=== PATIENT | male | born 1975 | race Caucasian/White ===

== ENCOUNTER 2016-10-16 09:44 | Emergency (ER) | payer OTHER ==
[2016-10-16 09:56] VITALS: BP 123/79
== END 2016-10-16 10:45 | disposition home or self-care (01) ==
LOC: ED 09:44
DX: K57.92 Diverticulitis of intestine, part unspecified, without perforation or abscess without bleeding (principal)

== ENCOUNTER 2016-10-18 07:27 | Emergency (ER) | payer OTHER ==
[2016-10-18 08:33] LABS: CALCIUM 8.5 mg/dL (8.5-10.1); CARBON DIOXIDE 27.3 mmol/L (21-32); CHLORIDE SERUM 102 mmol/L (98-107); CREATININE SERUM 0.9 mg/dL (0.7-1.3); GFR1 > 60 mL/min; GLUCOSE SERUM 134 mg/dL (74-106); POTASSIUM SERUM 4.3 mmol/L (3.5-5.1); SODIUM SERUM 137 mmol/L (136-145)
[2016-10-18 08:39] LABS: ALKALINE PHOSPHATASE 99 U/L (46-116); ALT/SGPT 42 U/L (16-63); AST/SGOT 17 U/L (15-37); BILIRUBIN TOTAL 0.5 mg/dL (0.20-1.00); LIPASE 135 IU/L (73-393); TOTAL PROTEIN, SERUM 6.9 g/dL (6.4-8.2)
[2016-10-18 08:49] LABS: BASOPHIL % 0.4 % (0-2); PLATELET COUNT 291 x10^3mcL (130-400); RED CELL DISTRIBUTION WIDTH 12.3 % (11.5-14.5)
[2016-10-18 11:53] VITALS: BP 121/86
== END 2016-10-18 11:53 | disposition home or self-care (01) ==
LOC: ED 07:27
PROVIDERS: Emergency Medicine
DX: K57.92 Diverticulitis of intestine, part unspecified, without perforation or abscess without bleeding (principal)
CPT/HCPCS: J1885; J7030; Q9967

== ENCOUNTER 2017-03-30 19:37 | Emergency (ER) | payer OTHER ==
[2017-03-30 22:24] LABS: PLATELET COUNT 326 x10^3mcL (130-400); RED CELL DISTRIBUTION WIDTH 12.9 % (11.5-14.5)
[2017-03-30 22:39] LABS: CALCIUM 7.9 mg/dL (8.5-10.1); CARBON DIOXIDE 21.8 mmol/L (21-32); CHLORIDE SERUM 106 mmol/L (98-107); CREATININE SERUM 0.7 mg/dL (0.7-1.3); GFR1 > 60 mL/min; GLUCOSE SERUM 156 mg/dL (74-106); POTASSIUM SERUM 3.3 mmol/L (3.5-5.1); SODIUM SERUM 140 mmol/L (136-145)
[2017-03-30 22:45] LABS: BASOPHIL % 2.4 % (0-2)
[2017-03-30 22:54] LABS: FREE T4 0.97 ng/dL (0.76-1.46)
[2017-03-31 00:05] VITALS: BP 151/92
== END 2017-03-31 00:05 | disposition home or self-care (01) ==
LOC: ED 19:37
PROVIDERS: Emergency Medicine
DX: M54.5 Low back pain (principal); R00.0 Tachycardia, unspecified
CPT/HCPCS: 84439; J1885; J7030

== ENCOUNTER 2017-07-07 18:11 | Emergency (ER) | payer SELFPAY ==
[~2017-07-07] VITALS: Ht 175.3 cm; Wt 77.1 kg
[2017-07-07 18:22] VITALS: Ht 175.3 cm; Wt 77.1 kg
[2017-07-07 20:00] VITALS: BP 139/99
== END 2017-07-07 20:01 | disposition home or self-care (01) ==
LOC: ED 18:11
DX: F10.129 Alcohol abuse with intoxication, unspecified (principal)

== ENCOUNTER 2017-09-15 12:50 | Inpatient (IN) | payer OTHER ==
[~2017-09-15] VITALS: Ht 170.2 cm; Wt 78.0 kg
[2017-09-15 14:11] LABS: microscopic required? NO
[2017-09-15 14:21] LABS: UA SPECIFIC GRAVITY 1.015 (1.005-1.035); urine erythrocyte NEGATIVE (NEGATIVE)
[2017-09-15 14:28] LABS: BASOPHIL % 0.6 % (0-2); PLATELET COUNT 225 x10^3mcL (130-400); RED CELL DISTRIBUTION WIDTH 13.2 % (11.5-14.5)
[2017-09-15 14:31] LABS: CALCIUM 8.2 mg/dL (8.5-10.1); CARBON DIOXIDE 18.6 mmol/L (21-32); CHLORIDE SERUM 96 mmol/L (98-107); CREATININE SERUM 0.8 mg/dL (0.7-1.3); GFR1 > 60 mL/min; GLUCOSE SERUM 399 mg/dL (74-106); POTASSIUM SERUM 3.6 mmol/L (3.5-5.1); SODIUM SERUM 134 mmol/L (136-145)
[2017-09-15 14:45] LABS: ALBUMIN 3.4 g/dL (3.4-5.0); ALKALINE PHOSPHATASE 135 U/L (46-116); ALT/SGPT 39 U/L (16-63); AST/SGOT 16 U/L (15-37); BILIRUBIN TOTAL 0.4 mg/dL (0.20-1.00); TOTAL PROTEIN, SERUM 6.5 g/dL (6.4-8.2)
[2017-09-15 16:38] LABS: AMPHETAMINE QUAL UR NONE DETECTED (NEG <=1000)
[2017-09-15 16:43] LABS: T3 TOTAL 0.73 ng/mL
[2017-09-15 16:45] LABS: CHOLESTEROL/HDL RATIO 5.8; MAGNESIUM 1.9 mg/dL (1.8-2.4); PHOSPHOROUS 2.5 mg/dL (2.5-4.9)
[2017-09-15 16:47] LABS: FREE T4 1.07 ng/dL (0.76-1.46); FREE THYROXINE INDEX 2.4 ug/dL (1.4-4.5)
[2017-09-15 17:05] VITALS: BP 132/71
[2017-09-15 18:17] LABS: BASOPHIL % 0.7 % (0-2); PLATELET COUNT 202 x10^3mcL (130-400); RED CELL DISTRIBUTION WIDTH 13.3 % (11.5-14.5)
[2017-09-15 18:34] LABS: CALCIUM 7.2 mg/dL (8.5-10.1); CARBON DIOXIDE 19.2 mmol/L (21-32); CHLORIDE SERUM 102 mmol/L (98-107); CREATININE SERUM 0.7 mg/dL (0.7-1.3); GFR1 > 60 mL/min; GLUCOSE SERUM 200 mg/dL (74-106); MAGNESIUM 1.7 mg/dL (1.8-2.4); PHOSPHOROUS 1.6 mg/dL (2.5-4.9); SODIUM SERUM 139 mmol/L (136-145)
[2017-09-15 18:48] LABS: POTASSIUM SERUM 2.7 mmol/L (3.5-5.1)
[2017-09-15 19:29] VITALS: BP 151/80
[2017-09-15 22:33] LABS: CALCIUM 7.7 mg/dL (8.5-10.1); CARBON DIOXIDE 23.2 mmol/L (21-32); CHLORIDE SERUM 104 mmol/L (98-107); CREATININE SERUM 0.6 mg/dL (0.7-1.3); GFR1 > 60 mL/min; GLUCOSE SERUM 92 mg/dL (74-106); MAGNESIUM 1.8 mg/dL (1.8-2.4); PHOSPHOROUS 2.6 mg/dL (2.5-4.9); SODIUM SERUM 138 mmol/L (136-145)
[2017-09-15 22:37] LABS: BASOPHIL % 0.8 % (0-2); PLATELET COUNT 210 x10^3mcL (130-400); RED CELL DISTRIBUTION WIDTH 13.3 % (11.5-14.5)
[2017-09-15 22:40] LABS: POTASSIUM SERUM 2.9 mmol/L (3.5-5.1)
[2017-09-15 23:15] VITALS: BP 95/52
[2017-09-16 02:43] LABS: CALCIUM 7.9 mg/dL (8.5-10.1); CHLORIDE SERUM 107 mmol/L (98-107); CREATININE SERUM 0.6 mg/dL (0.7-1.3); GFR1 > 60 mL/min; GLUCOSE SERUM 120 mg/dL (74-106); MAGNESIUM 2.1 mg/dL (1.8-2.4); PHOSPHOROUS 2.3 mg/dL (2.5-4.9); SODIUM SERUM 142 mmol/L (136-145)
[2017-09-16 02:49] LABS: BASOPHIL % 0.5 % (0-2); PLATELET COUNT 201 x10^3mcL (130-400); RED CELL DISTRIBUTION WIDTH 13.6 % (11.5-14.5)
[2017-09-16 02:50] LABS: POTASSIUM SERUM 2.9 mmol/L (3.5-5.1)
[2017-09-16 03:25] VITALS: BP 111/56
[2017-09-16 05:58] LABS: BASOPHIL % 0.5 % (0-2); PLATELET COUNT 199 x10^3mcL (130-400); RED CELL DISTRIBUTION WIDTH 13.8 % (11.5-14.5)
[2017-09-16 06:13] LABS: CALCIUM 7.7 mg/dL (8.5-10.1); CARBON DIOXIDE 24.8 mmol/L (21-32); CHLORIDE SERUM 104 mmol/L (98-107); CREATININE SERUM 0.6 mg/dL (0.7-1.3); GFR1 > 60 mL/min; GLUCOSE SERUM 146 mg/dL (74-106); MAGNESIUM 2.1 mg/dL (1.8-2.4); PHOSPHOROUS 2.4 mg/dL (2.5-4.9); SODIUM SERUM 139 mmol/L (136-145)
[2017-09-16 06:16] LABS: POTASSIUM SERUM 2.7 mmol/L (3.5-5.1)
[2017-09-16 07:36] VITALS: BP 91/60
[2017-09-16 12:28] VITALS: BP 106/62
[2017-09-16 16:34] VITALS: BP 111/69
[2017-09-16 17:26] LABS: CALCIUM 8.8 mg/dL (8.5-10.1); CARBON DIOXIDE 22.5 mmol/L (21-32); CHLORIDE SERUM 100 mmol/L (98-107); CREATININE SERUM 0.7 mg/dL (0.7-1.3); GFR1 > 60 mL/min; GLUCOSE SERUM 298 mg/dL (74-106); POTASSIUM SERUM 3.8 mmol/L (3.5-5.1); SODIUM SERUM 136 mmol/L (136-145)
[2017-09-16 17:28] LABS: MAGNESIUM 1.8 mg/dL (1.8-2.4); PHOSPHOROUS 2.8 mg/dL (2.5-4.9)
[2017-09-16 21:48] VITALS: BP 120/66
[2017-09-17 05:32] VITALS: BP 122/63
[2017-09-17 06:16] LABS: BASOPHIL % 0.7 % (0-2); PLATELET COUNT 210 x10^3mcL (130-400); RED CELL DISTRIBUTION WIDTH 13.5 % (11.5-14.5)
[2017-09-17 06:19] LABS: CALCIUM 8.2 mg/dL (8.5-10.1); CARBON DIOXIDE 28.8 mmol/L (21-32); CHLORIDE SERUM 103 mmol/L (98-107); CREATININE SERUM 0.5 mg/dL (0.7-1.3); GFR1 > 60 mL/min; GLUCOSE SERUM 176 mg/dL (74-106); PHOSPHOROUS 3.4 mg/dL (2.5-4.9); SODIUM SERUM 142 mmol/L (136-145)
[2017-09-17 06:30] LABS: POTASSIUM SERUM 2.6 mmol/L (3.5-5.1)
[2017-09-17 09:35] VITALS: BP 106/64
[2017-09-17] MEDS ORDERED: LIPI20 PO (09:54)
[2017-09-17] MEDS ORDERED: NEU300 PO (09:54)
[2017-09-17] MEDS ORDERED: GLU500 PO (09:55)
[2017-09-17] MEDS ORDERED: LEVEMIR FLEX100 U/M1 SC (09:59)
[2017-09-17] MEDS ORDERED: ACCU-CHEK1 EACH MC (10:01)
[2017-09-17] MEDS ORDERED: ACCU-CHEK COMB1 EACH MC (10:01)
[2017-09-17] MEDS ORDERED: TEST STRIPS1 EACH MC (10:02)
[2017-09-17 13:04] VITALS: BP 106/64
[2017-09-17 15:34] LABS: CALCIUM 8.5 mg/dL (8.5-10.1); CARBON DIOXIDE 29.5 mmol/L (21-32); CHLORIDE SERUM 102 mmol/L (98-107); CREATININE SERUM 0.7 mg/dL (0.7-1.3); GFR1 > 60 mL/min; GLUCOSE SERUM 291 mg/dL (74-106); POTASSIUM SERUM 3.8 mmol/L (3.5-5.1); SODIUM SERUM 139 mmol/L (136-145)
== END 2017-09-17 17:10 | disposition home or self-care (01) | DRG 420 ==
LOC: ED 12:50 → DU 15:18 → IC 15:18 → DU 09-16 13:39 → MU 09-17 09:58
PROVIDERS: Emergency Medicine; Family Medicine
DX: E11.10 Type 2 diabetes mellitus with ketoacidosis without coma (principal); E87.8 Other disorders of electrolyte and fluid balance, not elsewhere classified; E87.1 Hypo-osmolality and hyponatremia; E78.5 Hyperlipidemia, unspecified; F12.90 Cannabis use, unspecified, uncomplicated; E11.40 Type 2 diabetes mellitus with diabetic neuropathy, unspecified; E11.319 Type 2 diabetes mellitus with unspecified diabetic retinopathy without macular edema; E87.6 Hypokalemia; E83.39 Other disorders of phosphorus metabolism; E83.42 Hypomagnesemia; D64.9 Anemia, unspecified; H53.8 Other visual disturbances; F15.90 Other stimulant use, unspecified, uncomplicated; Z72.89 Other problems related to lifestyle; Z83.3 Family history of diabetes mellitus; Z87.891 Personal history of nicotine dependence
CPT/HCPCS: 36600; 83880; 84439; G0480; J1815; J3475; J3480; J3490; J7030; Q0092; Q9967

== ENCOUNTER 2018-07-25 12:12 | Emergency (ER) | payer OTHER ==
[~2018-07-25] VITALS: Ht 152.4 cm; Wt 76.7 kg
[~2018-07-25 12:12] MED LIST: ACCU-CHEK COMB1 EACH MC; ACCU-CHEK1 EACH MC; GLU500 PO; LEVEMIR FLEX100 U/M1 SC; LIPI20 PO; NEU300 PO; TEST STRIPS1 EACH MC
[2018-07-25 12:36] VITALS: BP 142/86
== END 2018-07-25 15:33 | disposition home or self-care (01) ==
LOC: ED 12:12
DX: S60.512A Abrasion of left hand, initial encounter (principal); E11.65 Type 2 diabetes mellitus with hyperglycemia; W54.0XXA Bitten by dog, initial encounter; Y93.89 Activity, other specified; Y92.89 Other specified places as the place of occurrence of the external cause; Y99.8 Other external cause status
CPT/HCPCS: 82962

== ENCOUNTER 2019-05-29 12:08 | Emergency (ER) | payer MEDICAID ==
[~2019-05-29] VITALS: Ht 167.6 cm; Wt 79.4 kg
[2019-05-29 13:15] LABS: BASOPHIL % 1.2 % (0-2); PLATELET COUNT 208 x10^3mcL (130-400); RED CELL DISTRIBUTION WIDTH 12.6 % (11.5-14.5)
[2019-05-29 13:23] LABS: microscopic required? NO
[2019-05-29 13:27] LABS: CARBON DIOXIDE 22.3 mmol/L (21-32); CHLORIDE SERUM 99 mmol/L (98-107); CREATININE SERUM 0.6 mg/dL (0.7-1.3); GFR1 > 60 mL/min; GLUCOSE SERUM 308 mg/dL (74-106); POTASSIUM SERUM 4.1 mmol/L (3.5-5.1); SODIUM SERUM 134 mmol/L (136-145)
[2019-05-29 13:31] LABS: ALBUMIN 3.5 g/dL (3.4-5.0); ALKALINE PHOSPHATASE 110 U/L (46-116); ALT/SGPT 322 U/L (16-63); AST/SGOT 181 U/L (15-37); BILIRUBIN TOTAL 0.5 mg/dL (0.20-1.00); LIPASE 753 IU/L (73-393); TOTAL PROTEIN, SERUM 7.4 g/dL (6.4-8.2)
[2019-05-29 13:37] LABS: UA SPECIFIC GRAVITY <=1.005 (1.005-1.035); urine erythrocyte NEGATIVE (NEGATIVE)
[2019-05-29 16:04] VITALS: BP 141/95
== END 2019-05-29 16:04 | disposition home or self-care (01) ==
LOC: ED 12:08
PROVIDERS: Emergency Medicine
DX: K85.90 Acute pancreatitis without necrosis or infection, unspecified (principal); E11.65 Type 2 diabetes mellitus with hyperglycemia; F10.10 Alcohol abuse, uncomplicated
CPT/HCPCS: 36415; 82962; J7030

== ENCOUNTER 2019-09-01 10:18 | Emergency (ER) | payer BC ==
[~2019-09-01] VITALS: Ht 165.1 cm; Wt 78.5 kg
[2019-09-01 10:24] VITALS: Ht 165.1 cm; Wt 78.5 kg
[2019-09-01 11:26] LABS: BASOPHIL % 1.1 % (0-2); PLATELET COUNT 251 x10^3mcL (130-400); RED CELL DISTRIBUTION WIDTH 13.3 % (11.5-14.5)
[2019-09-01 11:32] LABS: CALCIUM 8.5 mg/dL (8.5-10.1); CARBON DIOXIDE 25.3 mmol/L (21-32); CHLORIDE SERUM 97 mmol/L (98-107); CREATININE SERUM 0.6 mg/dL (0.7-1.3); GFR1 > 60 mL/min; GLUCOSE SERUM 290 mg/dL (74-106); POTASSIUM SERUM 3.9 mmol/L (3.5-5.1); SODIUM SERUM 136 mmol/L (136-145)
[2019-09-01 13:54] VITALS: BP 111/71
== END 2019-09-01 13:55 | disposition home or self-care (01) ==
LOC: ED 10:18
PROVIDERS: Student in an Organized Health Care Education/Training Program
DX: F10.129 Alcohol abuse with intoxication, unspecified (principal); E11.65 Type 2 diabetes mellitus with hyperglycemia
CPT/HCPCS: 82962; J7030

== ENCOUNTER 2019-09-03 13:08 | Emergency (ER) | payer BC ==
[~2019-09-03] VITALS: Ht 170.2 cm; Wt 77.1 kg
[2019-09-03 16:38] VITALS: BP 150/98
== END 2019-09-03 16:58 | disposition home or self-care (01) ==
LOC: ED 13:08
DX: E11.65 Type 2 diabetes mellitus with hyperglycemia (principal); I10 Essential (primary) hypertension
CPT/HCPCS: 82962

== ENCOUNTER 2019-10-07 10:28 | Emergency (ER) | payer BC ==
[~2019-10-07] VITALS: Ht 167.6 cm; Wt 74.8 kg
[2019-10-07 10:34] VITALS: BP 153/96; Ht 167.6 cm; Wt 74.8 kg
== END 2019-10-07 10:57 | disposition home or self-care (01) ==
LOC: ED 10:28
DX: I10 Essential (primary) hypertension (principal); E11.9 Type 2 diabetes mellitus without complications; Z76.0 Encounter for issue of repeat prescription

== ENCOUNTER 2020-08-20 07:00 | Emergency (ER) | payer OTHER, MEDICAID ==
[~2020-08-20] VITALS: Ht 167.6 cm; Wt 74.8 kg
[2020-08-20 07:25] VITALS: Ht 167.6 cm; Wt 74.8 kg
[2020-08-20 08:38] VITALS: BP 146/106
== END 2020-08-20 08:38 | disposition home or self-care (01) ==
LOC: ED 07:00
DX: M54.9 Dorsalgia, unspecified (principal); M54.2 Cervicalgia; I10 Essential (primary) hypertension; E11.9 Type 2 diabetes mellitus without complications; F12.20 Cannabis dependence, uncomplicated; Z76.0 Encounter for issue of repeat prescription